=== PATIENT | female | born 1970 | race African-American/Black ===

== ENCOUNTER 2016-11-23 05:36 | Emergency (ER) | payer OTHER ==
[~2016-11-23] VITALS: Ht 157.5 cm; Wt 89.0 kg
[~2016-11-23 05:36] MED LIST: ALBU18HF2 IH; AMIT-188 PO; AMLO10TA80 PO; ATEN100T PO; B50 PO; BENA40TA66 PO; CYCL-374 PO; HYDR-3927 PO; HYDR25TA PO; KEPPSOL PO; LORA-671 PO; MINO2.5T2 PO; TRAM50TA PO
[2016-11-23] MEDS ORDERED: ONDANSETRON HCL 4MG/2ML VIAL IV STA (07:08)
[2016-11-23] MEDS ORDERED: SODIUM CHLORIDE 0.9% 1,000 ML IV ONE (07:08)
[2016-11-23] MEDS ORDERED: MORPHINE SULFATE 4 MG/ML CPJ (NOT FOR IM USE) IV STA (07:08)
[2016-11-23 07:29] LABS: BASOPHILS % 0.9 % (0.0-2.0); EOSINOPHILS % 6.7 % (0.0-5.0); HEMATOCRIT. 37.3 % (36.0-48.0); HEMOGLOBIN. 12.2 g/dL (12.0-16.0); LYMPHOCYTES % 24.8 % (20.0-50.0); MEAN CORPUSCULAR HEMOGLOBIN 29.6 pg (28.0-32.0); MEAN CORPUSCULAR VOLUME 90.4 fL (81.0-99.0); MEAN PLATELET VOLUME 9.2 fl (7.4-10.4); NEUTROPHILS % 60.6 % (40.0-76.0); PLATELET 198 x1000/uL (130-400); RED BLOOD CELL COUNT 4.13 mill/uL (4.2-5.4); RED CELL DISTRIBUTION WIDTH 14.4 % (11.6-14.6)
[2016-11-23 07:36] LABS: CARBON DIOXIDE 23 mEq/L (21-32); CHLORIDE 112 mEq/L (98-107)
[2016-11-23 07:41] LABS: HCG SCREEN NEGATIVE
[2016-11-23 07:52] LABS: PARTIAL THROMBOPLASTIN TIME 30.6 sec (24.0-34.0); PROTHROMBIN TIME 10.5 sec
[2016-11-23] MEDS ORDERED: MORPHINE SULFATE 4 MG/ML CPJ (NOT FOR IM USE) IV ONE (09:45)
[2016-11-23] MEDS ORDERED: HYDRALAZINE 20MG/ML VIAL IV ONE (09:45)
[2016-11-23 10:41] LABS: GLUCOSE URINE NEGATIVE (NEGATIVE); KETONES URINE NEGATIVE (NEGATIVE); LEUKOCYTE ESTERASE URINE NEGATIVE (NEGATIVE); NITRITE URINE NEGATIVE (NEGATIVE); OCCULT BLOOD URINE NEGATIVE (NEGATIVE); PROTEIN URINE TRACE (NEGATIVE); SPECIFIC GRAVITY URINE 1.028 (1.005-1.030); UROBILINOGEN URINE 0.2 E.U./dL (0.2-1.0)
[2016-11-23 10:42] LABS: CLARITY URINE HAZY (CLEAR); COLOR URINE YELLOW (YELLOW)
[2016-11-23] MEDS ORDERED: HYDROCODONE/ACETAMINOPHEN 5/325MG TABLET PO ONE (11:15)
[2016-11-23 11:48] VITALS: BP 151/92
== END 2016-11-23 12:48 | disposition home or self-care (01) ==
LOC: ER 07:17
DX: K80.20 Calculus of gallbladder without cholecystitis without obstruction (principal); I10 Essential (primary) hypertension; F14.10 Cocaine abuse, uncomplicated; K76.0 Fatty (change of) liver, not elsewhere classified; Z86.73 Personal history of transient ischemic attack (TIA), and cerebral infarction without residual deficits; Z98.890 Other specified postprocedural states
CPT/HCPCS: 36415; 71010; 74176; 76705; 80053; 81001; 83690; 84703; 85025; 85610; 85730; 86850; 86900; 86901; 93005; 96361; 96374; 96375; 96376; 99285; J0360; J2270; J2405; J7030; Z7610

== ENCOUNTER 2016-12-23 22:16 | Emergency (ER) | payer OTHER ==
[~2016-12-23] VITALS: Ht 157.5 cm; Wt 91.0 kg
[~2016-12-23 22:16] MED LIST changes: -CYCL-374 PO; +CYCL10TA7 PO
[2016-12-24] MEDS ORDERED: ONDANSETRON HCL 4MG/2ML VIAL IV STA (00:41)
[2016-12-24] MEDS ORDERED: MORPHINE SULFATE 4 MG/ML CPJ (NOT FOR IM USE) IV STA (00:41)
[2016-12-24] MEDS ORDERED: LABETALOL HCL 20MG/4ML CARPUJECT IV ONE (00:45)
[2016-12-24] MEDS ORDERED: LABETALOL 5MG/ML SYR 20 MG/4 ML SYRINGE IV NR (00:54)
[2016-12-24 01:04] LABS: BASOPHILS % 0.9 % (0.0-2.0); EOSINOPHILS % 4.7 % (0.0-5.0); HEMATOCRIT. 38.9 % (36.0-48.0); HEMOGLOBIN. 12.9 g/dL (12.0-16.0); LYMPHOCYTES % 28.2 % (20.0-50.0); MEAN CORPUSCULAR HEMOGLOBIN 29.5 pg (28.0-32.0); MEAN CORPUSCULAR VOLUME 89.2 fL (81.0-99.0); MEAN PLATELET VOLUME 9.1 fl (7.4-10.4); MONOCYTES % 6.6 % (2.0-8.0); NEUTROPHILS % 59.6 % (40.0-76.0); PLATELET 225 x1000/uL (130-400); RED BLOOD CELL COUNT 4.36 mill/uL (4.2-5.4); RED CELL DISTRIBUTION WIDTH 14.4 % (11.6-14.6)
[2016-12-24 01:10] LABS: INR 1.1; PROTHROMBIN TIME 11.3 sec
[2016-12-24 01:15] LABS: CARBON DIOXIDE 29 mEq/L (21-32); CHLORIDE 106 mEq/L (98-107)
[2016-12-24] MEDS ORDERED: MORPHINE SULFATE 4 MG/ML CPJ (NOT FOR IM USE) IV ONE (04:30)
[2016-12-24 06:57] VITALS: BP 167/101
== END 2016-12-24 06:59 | disposition home or self-care (01) ==
LOC: ER 22:16
DX: I10 Essential (primary) hypertension (principal); R51 Headache; J45.909 Unspecified asthma, uncomplicated; F17.200 Nicotine dependence, unspecified, uncomplicated; Z86.73 Personal history of transient ischemic attack (TIA), and cerebral infarction without residual deficits; Z88.5 Allergy status to narcotic agent
CPT/HCPCS: 36415; 70450; 71010; 80053; 85025; 85610; 93005; 96374; 96375; 96376; 99291; J2270; J2405; J3490; Z7610

== ENCOUNTER 2017-03-22 19:02 | Inpatient (IN) | payer OTHER ==
[~2017-03-22] VITALS: Ht 157.5 cm; Wt 87.1 kg
[2017-03-22] MEDS ORDERED: NITROGLYCERIN OINT 1GM/INCH UDPKT TD STA (21:11)
[2017-03-22] MEDS ORDERED: MORPHINE SULFATE 4 MG/ML CPJ (NOT FOR IM USE) IV STA (21:11)
[2017-03-22] MEDS ORDERED: ONDANSETRON HCL 4MG/2ML VIAL IV STA (21:11)
[2017-03-22] MEDS ORDERED: ASPIRIN 81MG TABLET PO STA (21:11)
[2017-03-22] MEDS ORDERED: NITROGLYCERIN 0.4MG TABLET SL SL PRN (21:15)
[2017-03-22 21:36] LABS: BASOPHILS % 0.8 % (0.0-2.0); EOSINOPHILS % 4.1 % (0.0-5.0); HEMATOCRIT. 39.5 % (36.0-48.0); HEMOGLOBIN. 13.1 g/dL (12.0-16.0); LYMPHOCYTES % 20.7 % (20.0-50.0); MEAN CORPUSCULAR HEMOGLOBIN 29.6 pg (28.0-32.0); MEAN CORPUSCULAR VOLUME 89.2 fL (81.0-99.0); MEAN PLATELET VOLUME 8.9 fl (7.4-10.4); MONOCYTES % 7.6 % (2.0-8.0); NEUTROPHILS % 66.8 % (40.0-76.0); PLATELET 226 x1000/uL (130-400); RED BLOOD CELL COUNT 4.43 mill/uL (4.2-5.4)
[2017-03-22 21:39] LABS: CHLORIDE 107 mEq/L (98-107)
[2017-03-22 21:42] LABS: PARTIAL THROMBOPLASTIN TIME 28.7 sec (23.4-31.0); PROTHROMBIN TIME 10.9 sec (9.4-11.6)
[2017-03-22 21:43] LABS: CARBON DIOXIDE 26 mEq/L (21-32)
[2017-03-22 21:44] LABS: HCG SCREEN NEGATIVE
[2017-03-22 21:51] LABS: CREATINE KINASE 182 IU/L (26-192); TROPONIN I < 0.02 ng/mL (0.00-0.04)
[2017-03-22 21:56] LABS: CREATINE KINASE MB FRACTION 1.1 ng/mL (0.5-3.6)
[2017-03-23 01:00] VITALS: BP 184/110
[2017-03-23] MEDS ORDERED: IPRATROPIUM/ALBUTEROL 0.5-3(2.5)MG/3ML NEB HHN PRN (03:15)
[2017-03-23] MEDS ORDERED: HYDROCODONE/ACETAMINOPHEN 10/325MG TABLET PO PRN (03:15)
[2017-03-23 04:46] VITALS: BP 140/89
[2017-03-23] MEDS ORDERED: DIPHENHYDRAMINE 50MG CAPSULE PO PRN (05:09)
[2017-03-23 08:05] VITALS: BP 167/84
[2017-03-23] MEDS ORDERED: AMITRIPTYLINE 50MG TABLET PO SCH (09:00)
[2017-03-23] MEDS ORDERED: HYDROCHLOROTHIAZIDE 25MG TABLET PO SCH (09:00)
[2017-03-23] MEDS ORDERED: LORATADINE 10MG TABLET PO SCH (09:00)
[2017-03-23] MEDS: MINOXIDIL 2.5MG TABLET PO SCH ×2 (09:12→21:00)
[2017-03-23] MEDS: METOPROLOL TARTRATE 50MG TABLET PO SCH ×2 (09:12→21:00)
[2017-03-23] MEDS: LEVETIRACETAM 500MG/5ML CUP PO SCH ×2 (09:13→21:00)
[2017-03-23 12:04] VITALS: BP 144/82
[2017-03-23] MEDS ORDERED: IBUPROFEN 800MG TABLET PO PRN (12:30)
[2017-03-23 15:59] VITALS: BP 159/90
[2017-03-23 20:21] VITALS: BP 155/90
== END 2017-03-24 00:01 | disposition left against medical advice (07) | DRG 198 ==
LOC: EDBEDREQ 22:13 → ER 22:18 → ENRESERV 22:31 → 6WST 23:00
PROVIDERS: ADMIT Internal Medicine; ATTEND Internal Medicine
DX: I25.10 Atherosclerotic heart disease of native coronary artery without angina pectoris (principal); I69.351 Hemiplegia and hemiparesis following cerebral infarction affecting right dominant side; I10 Essential (primary) hypertension; F17.210 Nicotine dependence, cigarettes, uncomplicated; J45.909 Unspecified asthma, uncomplicated; E11.9 Type 2 diabetes mellitus without complications; E66.9 Obesity, unspecified; Z68.35 Body mass index [BMI] 35.0-35.9, adult; Z53.21 Procedure and treatment not carried out due to patient leaving prior to being seen by health care provider
CPT/HCPCS: 36415; 70450; 71010; 72125; 80053; 82550; 82553; 83690; 83880; 84443; 84484; 84703; 85025; 85610; 85730; 93005; 96374; 96375; 99291; J2270; J2405

== ENCOUNTER 2018-07-15 01:04 | Emergency (ER) | payer OTHER ==
[~2018-07-15] VITALS: Ht 157.5 cm; Wt 94.0 kg
[~2018-07-15 01:04] MED LIST changes: +ASPI-1159 PO; +FLOV44 IH; +FURO-151 PO; +FURO-152 PO; +IBUP-2030 PO; +KETOCONAZOLE TOP; +POTA10CA42 PO
[2018-07-15] MEDS ORDERED: MORPHINE SULFATE 10 MG/ML CPJ IM ONE (04:30)
[2018-07-15] MEDS ORDERED: ONDANSETRON 4MG ODT PO ONE (04:30)
[2018-07-15 06:12] VITALS: BP 140/88
== END 2018-07-15 06:16 | disposition home or self-care (01) ==
LOC: ER 01:04
DX: N63.0 Unspecified lump in unspecified breast (principal); N64.4 Mastodynia; I10 Essential (primary) hypertension; J45.909 Unspecified asthma, uncomplicated; F17.200 Nicotine dependence, unspecified, uncomplicated; Z86.73 Personal history of transient ischemic attack (TIA), and cerebral infarction without residual deficits; Z98.890 Other specified postprocedural states; Z88.5 Allergy status to narcotic agent; Z79.899 Other long term (current) drug therapy
CPT/HCPCS: 76641; 96372; 99284; J2270; Q0162

== ENCOUNTER 2018-11-20 00:32 | Emergency (ER) | payer OTHER ==
[~2018-11-20] VITALS: Ht 160 cm; Wt 88.9 kg
[2018-11-20] MEDS ORDERED: KETOROLAC 30MG/ML VIAL IM STA (05:15)
[2018-11-20 05:59] VITALS: BP 200/113
[2018-11-20] MEDS ORDERED: CLONIDINE 0.1MG TABLET PO NR (06:00)
== END 2018-11-20 06:24 | disposition home or self-care (01) ==
LOC: ER 00:32
DX: M79.605 Pain in left leg (principal); M54.30 Sciatica, unspecified side; F17.200 Nicotine dependence, unspecified, uncomplicated; J45.909 Unspecified asthma, uncomplicated; I10 Essential (primary) hypertension; Z98.890 Other specified postprocedural states; Z88.5 Allergy status to narcotic agent; Z79.899 Other long term (current) drug therapy
CPT/HCPCS: 93971; 96372; 99284; J1885

== ENCOUNTER 2018-12-05 20:03 | Inpatient (IN) | payer OTHER ==
[~2018-12-05] VITALS: Ht 157.5 cm; Wt 88.5 kg
[~2018-12-05 20:03] MED LIST changes: -ASPI-1159 PO; +ASPI-1393 PO
[2018-12-05] MEDS ORDERED: KETOROLAC 30MG/ML VIAL IV STA (23:17)
[2018-12-05] MEDS ORDERED: ONDANSETRON HCL 4MG/2ML INJ IV STA (23:17)
[2018-12-05 23:40] LABS: BASOPHILS % 0.8 % (0.0-2.0); EOSINOPHILS % 4.8 % (0.0-5.0); HEMATOCRIT. 38.6 % (36.0-48.0); HEMOGLOBIN. 13.3 g/dL (12.0-16.0); LYMPHOCYTES % 18.6 % (20.0-50.0); MEAN CORPUSCULAR HEMOGLOBIN 31.1 pg (28.0-32.0); MEAN CORPUSCULAR VOLUME 90.6 fL (81.0-99.0); MEAN PLATELET VOLUME 9.2 fl (7.4-10.4); MONOCYTES % 8.3 % (2.0-8.0); NEUTROPHILS % 67.5 % (40.0-76.0); PLATELET 264 x1000/uL (130-400); RED BLOOD CELL COUNT 4.26 mill/uL (4.2-5.4); RED CELL DISTRIBUTION WIDTH 14.6 % (11.6-14.6)
[2018-12-05 23:45] LABS: CHLORIDE 106 mEq/L (98-107)
[2018-12-06] VITALS (7 sets, daily range): BP systolic 131–152; BP diastolic 59–92
[2018-12-06] MEDS ORDERED: HYDROCODONE/ACETAMINOPHEN 5/325MG TABLET PO PRN (07:00)
[2018-12-06] MEDS ORDERED: POTASSIUM CHLORIDE 20MEQ TABLET SR PO NR (09:15)
[2018-12-06] MEDS ORDERED: ACETAMINOPHEN 325MG TABLET PO PRN (09:15)
[2018-12-06] MEDS: ENOXAPARIN 40MG/0.4ML SYR SUBCUT SCH (10:00)
[2018-12-06] MEDS: NICOTINE 7MG PATCH TD SCH (10:47)
[2018-12-06] MEDS: KETOROLAC 30MG/ML VIAL IV PRN ×2 (10:48→18:26)
[2018-12-06] MEDS: ONDANSETRON HCL 4MG/2ML INJ IV PRN ×2 (10:49→18:25)
[2018-12-07] VITALS: BP 146/81
[2018-12-07] MEDS: KETOROLAC 30MG/ML VIAL IV PRN ×2 (01:26→09:01)
[2018-12-07] MEDS: ONDANSETRON HCL 4MG/2ML INJ IV PRN ×2 (01:26→09:01)
[2018-12-07 04:00] VITALS: BP 140/80
[2018-12-07 08:00] VITALS: BP 152/92
[2018-12-07] MEDS ORDERED: NICOTINE 7MG PATCH TD SCH (09:00)
[2018-12-07] MEDS: NICOTINE 7MG PATCH TD SCH (09:01)
[2018-12-07] MEDS: ENOXAPARIN 40MG/0.4ML SYR SUBCUT SCH (10:00)
[2018-12-07 11:19] LABS: BASOPHILS % 0.7 % (0.0-2.0); EOSINOPHILS % 4.7 % (0.0-5.0); HEMATOCRIT. 36.7 % (36.0-48.0); HEMOGLOBIN. 12.1 g/dL (12.0-16.0); LYMPHOCYTES % 23.2 % (20.0-50.0); MEAN CORPUSCULAR HEMOGLOBIN 30.2 pg (28.0-32.0); MEAN PLATELET VOLUME 9.3 fl (7.4-10.4); NEUTROPHILS % 62.4 % (40.0-76.0); PLATELET 232 x1000/uL (130-400); RED BLOOD CELL COUNT 3.99 mill/uL (4.2-5.4); RED CELL DISTRIBUTION WIDTH 14.8 % (11.6-14.6)
[2018-12-07] MEDS: SODIUM CHLORIDE 0.9% 1,000 ML IV SCH (14:45)
[2018-12-07] MEDS: CLONIDINE 0.1MG TABLET PO PRN (15:46)
[2018-12-07] MEDS: OXYCODONE HCL/ACETAMINOPHEN 5/325MG TABLET PO PRN (15:47)
[2018-12-07 16:00] VITALS: BP 176/103
[2018-12-07 20:00] VITALS: BP 137/60
[2018-12-07] MEDS: MORPHINE SULFATE 15MG TABLET SR PO SCH (20:28)
[2018-12-08] VITALS: BP 165/93
[2018-12-08] MEDS: SODIUM CHLORIDE 0.9% 1,000 ML IV SCH ×3 (00:45→20:45)
[2018-12-08] MEDS: OXYCODONE HCL/ACETAMINOPHEN 5/325MG TABLET PO PRN ×2 (00:56→12:45)
[2018-12-08 04:00] VITALS: BP 114/72
[2018-12-08 06:47] LABS: BASOPHILS % 0.7 % (0.0-2.0); EOSINOPHILS % 4.4 % (0.0-5.0); HEMATOCRIT. 34.9 % (36.0-48.0); HEMOGLOBIN. 11.7 g/dL (12.0-16.0); LYMPHOCYTES % 25.5 % (20.0-50.0); MEAN CORPUSCULAR HEMOGLOBIN 30.4 pg (28.0-32.0); MEAN CORPUSCULAR VOLUME 91.2 fL (81.0-99.0); MEAN PLATELET VOLUME 9.7 fl (7.4-10.4); MONOCYTES % 9.4 % (2.0-8.0); PLATELET 228 x1000/uL (130-400); RED BLOOD CELL COUNT 3.83 mill/uL (4.2-5.4); RED CELL DISTRIBUTION WIDTH 14.6 % (11.6-14.6)
[2018-12-08 07:03] LABS: CHLORIDE 105 mEq/L (98-107)
[2018-12-08 08:00] VITALS: BP 197/112
[2018-12-08 08:25] LABS: IMMUNOGLOBULIN A 176 mg/dL (87-352); IMMUNOGLOBULIN G 867 mg/dL (700-1600); IMMUNOGLOBULIN M 81 mg/dL (26-217)
[2018-12-08] MEDS: MORPHINE SULFATE 15MG TABLET SR PO SCH ×2 (08:57→21:21)
[2018-12-08] MEDS: NICOTINE 7MG PATCH TD SCH (08:58)
[2018-12-08] MEDS: CLONIDINE 0.1MG TABLET PO PRN ×2 (08:58→18:05)
[2018-12-08] MEDS: ENOXAPARIN 40MG/0.4ML SYR SUBCUT SCH (09:00)
[2018-12-08] MEDS: AMLODIPINE 5MG TABLET PO SCH ×2 (12:45→18:05)
[2018-12-08] MEDS: LOSARTAN POTASSIUM 25 MG TABLET PO SCH (13:30)
[2018-12-08 20:00] VITALS: BP 160/93
[2018-12-09] VITALS: BP 175/102
[2018-12-09] MEDS: OXYCODONE HCL/ACETAMINOPHEN 5/325MG TABLET PO PRN ×3 (01:51→13:08)
[2018-12-09] MEDS: CLONIDINE 0.1MG TABLET PO PRN ×2 (03:10→08:42)
[2018-12-09] MEDS: SODIUM CHLORIDE 0.9% 1,000 ML IV SCH (06:45)
[2018-12-09 07:45] LABS: BASOPHILS % 0.7 % (0.0-2.0); HEMATOCRIT. 35.1 % (36.0-48.0); HEMOGLOBIN. 11.7 g/dL (12.0-16.0); LYMPHOCYTES % 27.4 % (20.0-50.0); MEAN CORPUSCULAR HEMOGLOBIN 30.3 pg (28.0-32.0); MEAN CORPUSCULAR VOLUME 91.1 fL (81.0-99.0); MEAN PLATELET VOLUME 9.3 fl (7.4-10.4); MONOCYTES % 7.7 % (2.0-8.0); NEUTROPHILS % 61.2 % (40.0-76.0); PLATELET 216 x1000/uL (130-400); RED BLOOD CELL COUNT 3.86 mill/uL (4.2-5.4); RED CELL DISTRIBUTION WIDTH 14.4 % (11.6-14.6)
[2018-12-09 08:00] VITALS: BP 179/100
[2018-12-09 08:00] LABS: CHLORIDE 106 mEq/L (98-107)
[2018-12-09] MEDS: AMLODIPINE 5MG TABLET PO SCH (08:41)
[2018-12-09] MEDS: LOSARTAN POTASSIUM 25 MG TABLET PO SCH (08:41)
[2018-12-09] MEDS: MORPHINE SULFATE 15MG TABLET SR PO SCH (08:42)
[2018-12-09] MEDS: NICOTINE 7MG PATCH TD SCH (08:42)
[2018-12-09] MEDS: ENOXAPARIN 40MG/0.4ML SYR SUBCUT SCH (10:00)
[2018-12-09 11:58] VITALS: BP 140/81
[2018-12-09 12:34] VITALS: BP 140/81
[2018-12-09 13:08] VITALS: BP 140/81
== END 2018-12-09 15:25 | disposition short-term general hospital (02) | DRG 347 ==
LOC: ER 20:03 → 6EST 12-06 00:14 → EDBEDREQTM 12-06 00:18 → EDBEDREQ 12-06 00:18 → ENRESERV 12-06 01:21 → 6EST 12-06 03:01
PROVIDERS: ADMIT Internal Medicine; ATTEND Internal Medicine
DX: M48.061 Spinal stenosis, lumbar region without neurogenic claudication (principal); C50.911 Malignant neoplasm of unspecified site of right female breast; I69.351 Hemiplegia and hemiparesis following cerebral infarction affecting right dominant side; E66.9 Obesity, unspecified; E87.6 Hypokalemia; I10 Essential (primary) hypertension; J45.909 Unspecified asthma, uncomplicated; F17.210 Nicotine dependence, cigarettes, uncomplicated; M47.896 Other spondylosis, lumbar region; M19.90 Unspecified osteoarthritis, unspecified site; M54.16 Radiculopathy, lumbar region; N83.202 Unspecified ovarian cyst, left side; Z88.6 Allergy status to analgesic agent; Z79.82 Long term (current) use of aspirin; Z79.899 Other long term (current) drug therapy; Z71.3 Dietary counseling and surveillance
CPT/HCPCS: 36415; 71250; 72141; 72148; 72192; 73502; 73552; 73721; 74176; 76857; 78306; 80048; 82784; 84155; 84165; 84702; 85651; 86141; 86334; 96374; 96375; 97162; 97166; 99285; A9503; J1650; J1885; J2405; J7030